=== PATIENT | female | born 1965 | race Caucasian/White ===

== ENCOUNTER 2016-04-14 00:26 | Inpatient (IN) | payer OTHER ==
[~2016-04-14] VITALS: Ht 160 cm; Wt 51.9 kg
[2016-04-14] MEDS ORDERED: LORAZEPAM 1 MG TAB SL STA (00:55)
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
[2016-04-14 01:23] LABS: BASO % 0.7 %; BASO ABS # 0.04 K/uL (0-0.2); COMPLETE YES; EOS % 1.8 %; HEMATOCRIT 41.9 % (37-47); IG% 0.2 %; LYMPH % 28.5 %; LYMPH ABS # 1.75 K/uL (1.2-3.4); MEAN CELL VOLUME 102.2 fL (80-100); MEAN CORPUSCULAR HEMOGLOBIN 35.9 pg (25-34); MEAN CORPUSCULAR HGB CONC 35.1 g/dl (32-36); MEAN PLATELET VOLUME 9.4 fL (7.4-10.4); MONO % 9.5 %; NEUT % 59.3 %; PLATELET COUNT 280 K/uL (130-400); WHITE BLOOD COUNT 6.13 K/uL (4.8-10.8)
[2016-04-14 01:41] LABS: MANUAL MICROSCOPIC REQUIRED? YES; URINE APPEARANCE CLEAR (CLEAR); URINE BILIRUBIN NEG (NEG); URINE COLOR YELLOW; URINE NITRITE NEG (NEG); URINE PH 5.5 (4.5-7.5); URINE SPECIFIC GRAVITY >= 1.030 (1.000-1.030); UROBILINOGEN NEG (NEG)
[2016-04-14 01:42] LABS: REVIEW REQ? NO
[2016-04-14 01:42] LABS: BUN/CREATININE RATIO 15.7 (10-20); CALCIUM 9.2 mg/dl (8.5-10.1); CREATININE 0.68 mg/dl (0.60-1.20); POTASSIUM 4.1 mmol/L (3.5-5.1)
[2016-04-14 01:47] LABS: ACETAMINOPHEN < 2 ug/ml (10-30)
[2016-04-14 01:49] LABS: URINE BACTERIA 1+ (NEG); URINE WBC 0 /hpf (0-5)
[2016-04-14 01:50] LABS: ZZUR CULT IF INDIC CLEAN CATCH YES
[2016-04-14 01:53] LABS: BENZODIAZEPINE, URINE NEG (NEG); COCAINE,URINE NEG (NEG); PHENCYCLIDINE, URINE NEG (NEG)
[2016-04-14 01:53] LABS: ALB/GLOB RATIO 1.1 (0.9-2); THYROID STIMULATING HORMONE 1.03 uIu/ml (0.300-4.500)
[2016-04-14] MEDS ORDERED: SODIUM CHLORIDE 0.65% NA SOLN 45 ML (OCEAN) PRN (10:15)
[2016-04-14] MEDS ORDERED: ALUMINUM/MAGNESIUM SUSP 30 ML UDC PO PRN (10:15)
[2016-04-14] MEDS ORDERED: BISMUTH SUBSALICYLATE PER ML OMNICELL CHARGE PO PRN (10:15)
[2016-04-14] MEDS ORDERED: MAGNESIUM HYDROXIDE SUSP 30 ML UDC PO PRN (10:15)
--- NOTE | 2016-04-14 10:24 | EMERGENCY ROOM VISIT NOTE ---
ED Visit Note Patient received from Dr. Duque at shift change medically cleared pending psychiatric screening. At 10:25 AM case management for the patient has been accepted to 3 S.
[2016-04-14 10:32] VITALS: O2SAT 98
[2016-04-14 11:15] VITALS: BP 139/93; PULSE 94; TEMP 37.1; Ht 160 cm; Wt 51.9 kg
[2016-04-14] MEDS: NICOTINE 14 MG/24 HR TDSY TD SCH (11:23)
[2016-04-14] MEDS ORDERED: LORAZEPAM 1 MG TAB PO PRN (12:00)
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
[2016-04-14] MEDS ORDERED: ESCITALOPRAM OXALATE 10 MG TAB PO ONE (12:30)
[2016-04-14] MEDS ORDERED: INFLUENZA VIRUS QUAD VACCINE 0.5 ML SYR IM. ONE (14:00)
[2016-04-14] MEDS ORDERED: INFLUENZA ADMINISTRATION CHARGE ONE (14:00)
[2016-04-14 17:00] VITALS: BP 132/88; PULSE 90; TEMP 36.9
[2016-04-14] MEDS: NICOTINE POLACRILEX 2 MG GUM MT PRN ×2 (17:48→21:49)
[2016-04-14] MEDS: IBUPROFEN 600 MG TAB PO PRN (19:31)
[2016-04-14 20:51] VITALS: BP 156/99; PULSE 86
[2016-04-14] MEDS: hydrOXYzine HCL 25 MG TAB PO PRN (23:01)
[2016-04-15 07:05] VITALS: BP_SYST 126; BP_SYST 130; BP_DIAS 87; BP_DIAS 89; PULSE 76; PULSE 81; TEMP 37
[2016-04-15 08:17] VITALS: BP 148/90; PULSE 84; TEMP 37
[2016-04-15] MEDS: NICOTINE 14 MG/24 HR TDSY TD SCH (08:17)
[2016-04-15] MEDS ORDERED: ESCITALOPRAM OXALATE 10 MG TAB PO SCH (09:00)
[2016-04-15] MEDS: IBUPROFEN 600 MG TAB PO PRN (09:38)
[2016-04-15 12:07] VITALS: BP 144/93; PULSE 76; TEMP 36.9
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
[2016-04-15] MEDS: hydrOXYzine HCL 25 MG TAB PO PRN ×2 (14:11→21:30)
[2016-04-15 14:46] VITALS: BP 144/92; PULSE 85; TEMP 36.8
[2016-04-15] MEDS ORDERED: LORAZEPAM 1 MG TAB PO PRN (16:15)
[2016-04-15 17:49] VITALS: BP 145/96; PULSE 87; TEMP 36.4
[2016-04-15 20:31] VITALS: BP 131/87; PULSE 94; TEMP 36.9
[2016-04-16 07:07] VITALS: BP_SYST 120; BP_SYST 128; BP_DIAS 86; BP_DIAS 89; PULSE 82; PULSE 92; TEMP 37
[2016-04-16 08:07] VITALS: BP 132/92; PULSE 84; TEMP 37.1
[2016-04-16] MEDS: NICOTINE 14 MG/24 HR TDSY TD SCH (08:58)
[2016-04-16] MEDS: ESCITALOPRAM OXALATE 10 MG TAB PO SCH (10:13)
[2016-04-16] MEDS ORDERED: ACETAMINOPHEN 500 MG TAB PO PRN (12:00)
[2016-04-16 12:23] VITALS: BP 125/86; PULSE 81; TEMP 37.2
[2016-04-16] MEDS: hydrOXYzine HCL 25 MG TAB PO PRN ×3 (12:27→21:29)
[2016-04-16] MEDS: ASPIRIN/ALUM/MAGNES/CAL CARB 325 MG TAB PO PRN (12:41)
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
[2016-04-17 07:02] VITALS: BP_SYST 120; BP_SYST 129; BP_DIAS 83; BP_DIAS 88; PULSE 73; PULSE 85; TEMP 36.6
[2016-04-17] MEDS: ASPIRIN/ALUM/MAGNES/CAL CARB 325 MG TAB PO PRN (07:37)
[2016-04-17] MEDS: ESCITALOPRAM OXALATE 10 MG TAB PO SCH (09:06)
[2016-04-17] MEDS: NICOTINE 14 MG/24 HR TDSY TD SCH (09:07)
[2016-04-17] MEDS ORDERED: ATR25 PO (09:39)
[2016-04-17] MEDS ORDERED: LXP10 PO (09:39)
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
[2016-05-30] MEDS ORDERED: ESCI1TAB10 PO (12:41)
[2016-05-30] MEDS ORDERED: VISTARIL PO (12:41)
[2016-05-30] MEDS ORDERED: HYDR1CAP85 PO (12:41)
[2016-05-30] MEDS ORDERED: TRAM-10 PO (12:41)
== END 2016-04-17 12:15 | disposition home or self-care (01) | DRG 885 ==
LOC: C.EDB 00:28 → C.MHU 10:05
PROVIDERS: ADMIT Psychiatry & Neurology Child & Adolescent Psychiatry; ATTEND Psychiatry & Neurology Child & Adolescent Psychiatry
DX: F33.2 Major depressive disorder, recurrent severe without psychotic features (principal); F17.210 Nicotine dependence, cigarettes, uncomplicated; F41.0 Panic disorder [episodic paroxysmal anxiety]; F10.120 Alcohol abuse with intoxication, uncomplicated; Z23 Encounter for immunization; Z91.5 Personal history of self-harm

== ENCOUNTER 2016-04-19 20:25 | Emergency (ER) | payer OTHER ==
[~2016-04-19] VITALS: Ht 160 cm; Wt 53.8 kg
[~2016-04-19 20:25] MED LIST: ATR25 PO; LXP10 PO
[2016-04-19 20:31] VITALS: Ht 160 cm; Wt 53.8 kg
[2016-04-19 21:30] LABS: PREG INTERNAL NEGATIVE QC NEG CLEAR BACKGROUND; PREG INTERNAL POSITIVE QC POS CONTROL LINE
[2016-04-19 21:51] LABS: HEMATOCRIT 42.9 % (37-47); MEAN CELL VOLUME 103.6 fL (80-100); MEAN CORPUSCULAR HGB CONC 35.7 g/dl (32-36); MEAN PLATELET VOLUME 9.7 fL (7.4-10.4); PLATELET COUNT 285 K/uL (130-400); RED BLOOD COUNT 4.14 M/uL (4.2-5.4)
[2016-04-19 22:00] LABS: BENZODIAZEPINE, URINE NEG (NEG); COCAINE,URINE NEG (NEG); PHENCYCLIDINE, URINE NEG (NEG)
[2016-04-19 22:08] LABS: ALT/SGPT 24 U/L (12-78); AST/SGOT 15 U/L (15-37); BLOOD UREA NITROGEN 8 mg/dl (7-18); BUN/CREATININE RATIO 12.8 (10-20); CALCIUM 9.3 mg/dl (8.5-10.1); CARBON DIOXIDE 20 mmol/L (21-32); CHLORIDE 109 mmol/L (98-107); CREATININE 0.61 mg/dl (0.60-1.20); GLUCOSE 95 mg/dl (70-99); POTASSIUM 4.1 mmol/L (3.5-5.1); SODIUM 143 mmol/L (136-145)
[2016-04-19 22:15] LABS: ACETAMINOPHEN < 2 ug/ml (10-30)
[2016-04-19 22:18] LABS: ALKALINE PHOSPHATASE 57 U/L (45-117)
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
--- NOTE | 2016-04-20 08:08 | EMERGENCY ROOM VISIT NOTE ---
ED Visit Note First contact with patient: 05:13 I received this patient in signout at the change of shift from Dr. Tom Agrawal, pending mental health evaluation. The patient initially agreed to a voluntary admission however refused admission to any of the local facilities. She stated that she preferred to be discharged to stay with her cousin. The patient has recently signed out of a voluntary hospitalization, she has been drinking alcohol heavily and sliced her wrists with a razor. She does live at home alone. This time I do not feel the patient is safe in her own care. She states she will not go voluntarily. A 302 petitioning statement has been signed. A bed search is currently underway. The case has been signed out to Dr. Carrion at the change of shift.
[2016-04-20] MEDS ORDERED: ACETAMINOPHEN 500 MG TAB PO STA ×2 (09:58→14:44)
--- NOTE | 2016-04-20 10:09 | EMERGENCY ROOM VISIT NOTE ---
ED Visit Note First contact with patient: 10:08 51-year-old female signed off to me at change of shift from Dr. Orozco. I reexamined the patient at 1004. The patient is upset that she has been 302'd. She states that she is not suicidal. This is the second visit for this patient recently. We are awaiting bed placement. The patient was given Tylenol for a headache.
[2016-04-20] MEDS ORDERED: ESCITALOPRAM OXALATE 10 MG TAB PO ONE (13:45)
[2016-04-20 15:25] VITALS: BP 137/88; PULSE 101; TEMP 37; O2SAT 99
[2016-05-30] MEDS ORDERED: HYDR1CAP85 PO (12:41)
[2016-05-30] MEDS ORDERED: ESCI1TAB10 PO (12:41)
[2016-05-30] MEDS ORDERED: VISTARIL PO (12:41)
[2016-05-30] MEDS ORDERED: TRAM-10 PO (12:41)
== END 2016-04-20 15:25 ==
LOC: C.EDB 20:25 → CANBEDREQ 22:07 → C.EDA 04-20 15:25
DX: F39 Unspecified mood [affective] disorder (principal); S61.512A Laceration without foreign body of left wrist, initial encounter; F10.129 Alcohol abuse with intoxication, unspecified; Z79.899 Other long term (current) drug therapy; Z88.5 Allergy status to narcotic agent; Z88.8 Allergy status to other drugs, medicaments and biological substances; X78.8XXA Intentional self-harm by other sharp object, initial encounter; F17.200 Nicotine dependence, unspecified, uncomplicated; Z82.49 Family history of ischemic heart disease and other diseases of the circulatory system

== ENCOUNTER → 2016-05-28 | Outpatient (CLI) | payer OTHER ==
[~2016-05-28] MED LIST changes: +ESCI1TAB10 PO; +HYDR1CAP85 PO; +TRAM-10 PO; +VISTARIL PO
== END | disposition home or self-care (01) ==
LOC: C.RDSM 12:58
PROVIDERS: ATTEND Orthopaedic Surgery Sports Medicine
DX: M25.571 Pain in right ankle and joints of right foot (principal)

== ENCOUNTER → 2016-06-03 | Day surgery (SDC) | payer OTHER ==
[2016-05-30 12:41] VITALS: Ht 160 cm; Wt 52.3 kg
[~2016-06-03] VITALS: Ht 160 cm; Wt 52.3 kg
[~2016-06-03] MED LIST changes: -ATR25 PO; +ATROPINE SULFATE 0.1 MG/ML 5ML SYR IV PRN; +BUPIVACAINE 0.5 % 5 MG/1 ML MPF 30ML VIAL ONE; +CEFAZOLIN 1000MG/55 ML D5W IV SCH; +DEXAMETHASONE SOD INJ 4 MG/ML VIAL IV PRN; +DEXAMETHASONE SOD INJ 4 MG/ML VIAL ONE; +EpHEDrine SULFATE INJ 50 MG/ML AMP IV PRN; +FENTANYL CITRATE INJ 50 MCG/1 ML 2 ML VIAL IV PRN; +FENTANYL CITRATE INJ 50 MCG/1 ML 2 ML VIAL ONE; +KETOROLAC TROMETHAMINE 30 MG/ML VIAL IV. PRN; +KETOROLAC TROMETHAMINE 30 MG/ML VIAL ONE; +LABETALOL HCL IV 5 MG/ML 20ML IV PRN; +LACTATED RINGER'S 1000ML 1,000 ML IV SCH; +LIDOCAINE HCL 1% MPF 2 ML VIAL ONE; +LIDOCAINE HCL 2% 2 ML VIAL (20MG/ML) ONE; +LIDOCAINE/EPINEPHRINE 1% INJ 50 ML VIAL ONE; -LXP10 PO; +METOCLOPRAMIDE HCL INJ 5 MG/ML 2 ML VIAL IV PRN; +MIDAZOLAM HCL 1 MG/ML 2ML VIAL ONE; +MoRPHine SULFATE 10 MG/ML CARP/VIAL IV PRN; +MoRPHine SULFATE 2 MG/ML CARP IV PRN; +MoRPHine SULFATE 4 MG/ML 1 ML CARP\\VIAL IV PRN; +ONDANSETRON INJ 2 MG/ML 2 ML VIAL IV PRN; +ONDANSETRON INJ 2 MG/ML 2 ML VIAL ONE; +PHENYLEPHRINE 100MCG/ML 5ML SYR IV PRN; +PROPOFOL IV EMULSION 10 MG/ML 20 ML VIAL IV ONE; +ROPIVACAINE 0.5% 5 MG/ML 30 ML VIAL ONE; +TRAMADOL HCL 50 MG TAB PO PRN
--- NOTE | 2016-06-03 06:54 | History & Physical Bridge - SC ---
H&P Re-Evaluation Bridge Note: I have examined the patient, reviewed the History & Physical and in the interval since the performance of the History & Physical I have noted the following changes of clinical significance: No changes noted
--- NOTE | 2016-06-03 09:38 | Discharge Instructions-[facility]urgCtr ---
Discharge Instructions Date of Service Jun 03, 2016. Visit Reason for Visit: Right Ankle Painful Retained Hardware Discharge Discharge Diagnosis / Problem: Status post removal hardware right ankle Discharge Goals Goal(s): Decrease discomfort, Improve function, Increase independence Activity Recommendations Activity Limitations: per Instructions/Follow-up section May Resume Sexual Activity: when tolerated Driving or Machine Use: Not while on Narcotics or in splint/boot Weightbearing Status: Right toe touch Anesthesia . Post Anesthesia Instructions: If you have had General Anesthesia or IV Sedation: * Do not drive today. * Resume driving when surgeon permits. * Do not make important decisions or sign legal documents today. * Call surgeon for: 1. Temperature elevations greater than 101 degrees F. 2. Uncontrollable pain. 3. Excessive bleeding. 4. Persistent nausea and vomiting. 5. Medication intolerance (nausea, vomiting or rash). * For nausea and vomiting use only clear liquids such as: tea, soda, bouillon until nausea subsides, then gradually increase diet as tolerated. * If you have any concerns or questions, call your surgeon's office. If physician is unavailable and it is an emergency, call 911 or go to the nearest emergency room. . Instructions / Follow-Up Instructions / Follow-Up Dr. Reis in 10-15 days. PT in 2-3 days. Diet Recommendations Home Diet: resume previous diet Procedures Procedures Performed: Right Ankle Hardware Removal Pending Studies Studies pending at discharge: no Medical Emergencies . Who to Call and When: Medical Emergencies: If at any time you feel your situation is an emergency, please call 911 immediately. . Non-Emergent Contact Non-Emergency issues call your: Surgeon Call Non-Emergent contact if: temperature is above 101.5, your pain is not controlled, wound has increased drainage, wound has increased redness . . "Provider Documentation" section prepared by Shaggy Reis.
--- NOTE | 2016-06-03 09:40 | [facility] Operative Report ---
Operative Report Operative Date Jun 03, 2016. Pre-Operative Diagnosis Painful hardware right ankle Post-Operative Diagnosis Same as preop Procedure(s) Performed Right Ankle Hardware Removal Surgeon Dr. Reis Flare Man Surgeon(s) Lauri Hassan MD and Franklin Ramirez PA-C Estimated Blood Loss 6 Findings Prominent Retained orthopaedic hardware right ankle. Fluids (cc crystalloids) 800 Specimens None Drains n/a Anesthesia LMA Complication(s) None Disposition Recovery Room / PACU (Stable) Implants n/a Indications The patient is a 51 female with a history of previous right distal tib-fib open reduction internal fixation, with painful retained hardware, that is palpable. The patient understands the risks of surgery, which include but are not limited to: bleeding, infection, re-operation, damage to nerves and arteries, continued pain, being unable to remove all of the hardware, and DVT. The patient understands all of these instructions and explanations, all of their questions have been satisfactorily addressed. The patient has elected to proceed with surgery and the informed consent was signed. Description of Procedure The patient was taken to the Operating Room and placed in the supine position on the operating table. After general anesthetic was administered a multidisciplinary time-out was performed identifying my initials on the right limb as the correct and operative limb. Prior to any incisions, 1 gram of intravenous Ancef were given. The right leg was prepped and draped in the usual Orthopaedic sterile fashion. The patient's previous incisions lateral about the ankle and medial about the medial malleolus and her 3 small stab incisions proximally along the medial aspect of the tibia were marked. The skin edges were injected with a 50:50 mixture of 1% lidocaine and 0.5 % Marcaine with epi for a total of 10 cc. the medial side was performed first in the distal portion of the incision was utilized and carried down to the plate. The screws were cleared of any soft tissue and removed with the appropriate screwdriver. The 3 previous stab incisions were utilized and careful dissection protecting the saphenous vein and nerve throughout. The plate was identified and soft tissue cleared to identify the screws which were removed sequentially. Then using [place] elevator along with a locking guide in the distal aspect of the plate the plate was freed from the bone and delivered out the distal wound. Any scar tissue was removed with rongeur and the screw hole were cleared and smoothed out also with the rongeur. The wound was copiously irrigated. The lateral side was performed next, again using the previous incision carrying it down to the plate and screws. Freeing up any soft tissue to allow removal of all the screws and the plate. The lag screw over the anterior portion of the fibula was identified and freed of any soft tissue and was also removed prior to removing the plate. Scar tissue and roughened areas where the screw holes were located were cleaned with rongeur and curettes. The wound was copiously irrigated. Final x-rays were obtained AP and lateral showing the hardware removed and her previous fractures healed. The skin incisions were closed with 3-0 Prolene in horizontal mattress fashion. The limb was cleaned and dried. The wound was covered Xerofoam, 4 x 4's, ABDs , sterile cast padding, posterior splint, and an RONAN. The sponge and needle counts were correct. POST-OP: Patient will be toe-touch weightbearing, until she can be switched to a high tide cam boot. At that point she will be allowed to be 25% partial weightbearing. She was given pain medicine. She will follow-up with Dr. Reis in 10-15 days. I attest to the content of the Intraoperative Record and any orders documented therein. Any exceptions are noted below.
--- NOTE | 2016-06-03 09:48 | [facility] Operative Report ---
Operative Report Operative Date Jun 03, 2016. Pre-Operative Diagnosis Painful hardware right ankle Post-Operative Diagnosis Same as preop Procedure(s) Performed Right Ankle Hardware Removal Surgeon Dr. Reis Counter Supervisor Surgeon(s) Lauri Hassan MD and Franklin Ramirez PA-C Estimated Blood Loss 6 Findings same Fluids (cc crystalloids) 800 Specimens None Drains none Anesthesia general Complication(s) None Disposition Recovery Room / PACU Implants none Indications painful hardware s/p ORIF right lower extremity, surgery recommended, consents signed Description of Procedure taken to the OR, prepped and draped, I was present the entire case, please see Dr. Reis's op note for further detail. I attest to the content of the Intraoperative Record and any orders documented therein. Any exceptions are noted below.
[2016-06-03 10:35] VITALS: TEMP 37.7
[2016-06-03 10:48] VITALS: BP 165/94; PULSE 64; O2SAT 96
--- NOTE | 2016-06-03 10:51 | Anesthesia Progress Nt - [facility] ---
Anesthesia Post Op Note Date & Time Jun 03, 2016 at 10:51 Vital Signs Pain Intensity: 0 Vital Signs Past 12 Hours Date Time Temp Pulse Resp B/P Pulse Ox O2 Delivery O2 Flow Rate FiO2 06/03/16 10:48 64 16 165/94 96 Room Air 06/03/16 10:35 37.7 70 16 161/95 97 Room Air 06/03/16 10:18 37.4 75 20 06/03/16 10:18 74 20 98 06/03/16 10:16 152/94 06/03/16 10:13 84 13 06/03/16 10:13 80 13 96 06/03/16 10:10 146/97 06/03/16 10:08 83 12 97 06/03/16 10:08 83 12 06/03/16 10:06 157/99 06/03/16 10:03 96 16 96 06/03/16 10:03 98 16 06/03/16 10:00 166/99 06/03/16 09:58 97 16 06/03/16 09:58 94 16 99 06/03/16 09:55 158/99 06/03/16 09:53 105 12 06/03/16 09:53 105 12 100 06/03/16 09:50 158/105 06/03/16 09:49 36.2 102 16 165/109 98 Nasal Cannula 4 06/03/16 09:48 104 19 165/109 98 06/03/16 09:48 100 19 06/03/16 06:24 37 76 18 161/97 96 Room Air Notes Mental Status: alert / awake / arousable, participated in evaluation Pt Amnestic to Procedure: Yes Nausea / Vomiting: adequately controlled Pain: adequately controlled Airway Patency, RR, SpO2: stable & adequate BP & HR: stable & adequate Hydration State: stable & adequate Anesthetic Complications: no major complications apparent
== END | disposition home or self-care (01) ==
LOC: X.SURG 06:07
PROVIDERS: ATTEND Orthopaedic Surgery Sports Medicine
DX: T84.84XA Pain due to internal orthopedic prosthetic devices, implants and grafts, initial encounter (principal); Y83.1 Surgical operation with implant of artificial internal device as the cause of abnormal reaction of the patient, or of later complication, without mention of misadventure at the time of the procedure; F41.9 Anxiety disorder, unspecified; F32.9 Major depressive disorder, single episode, unspecified; F17.210 Nicotine dependence, cigarettes, uncomplicated; Z88.5 Allergy status to narcotic agent; Z82.49 Family history of ischemic heart disease and other diseases of the circulatory system; Z80.8 Family history of malignant neoplasm of other organs or systems; Z90.710 Acquired absence of both cervix and uterus

== ENCOUNTER → 2016-07-23 | Outpatient (CLI) | payer OTHER ==
[~2016-07-23] MED LIST changes: -ATROPINE SULFATE 0.1 MG/ML 5ML SYR IV PRN; -BUPIVACAINE 0.5 % 5 MG/1 ML MPF 30ML VIAL ONE; -CEFAZOLIN 1000MG/55 ML D5W IV SCH; -DEXAMETHASONE SOD INJ 4 MG/ML VIAL IV PRN; -DEXAMETHASONE SOD INJ 4 MG/ML VIAL ONE; -EpHEDrine SULFATE INJ 50 MG/ML AMP IV PRN; -FENTANYL CITRATE INJ 50 MCG/1 ML 2 ML VIAL IV PRN; -FENTANYL CITRATE INJ 50 MCG/1 ML 2 ML VIAL ONE; -KETOROLAC TROMETHAMINE 30 MG/ML VIAL IV. PRN; -KETOROLAC TROMETHAMINE 30 MG/ML VIAL ONE; -LABETALOL HCL IV 5 MG/ML 20ML IV PRN; -LACTATED RINGER'S 1000ML 1,000 ML IV SCH; -LIDOCAINE HCL 1% MPF 2 ML VIAL ONE; -LIDOCAINE HCL 2% 2 ML VIAL (20MG/ML) ONE; -LIDOCAINE/EPINEPHRINE 1% INJ 50 ML VIAL ONE; -METOCLOPRAMIDE HCL INJ 5 MG/ML 2 ML VIAL IV PRN; -MIDAZOLAM HCL 1 MG/ML 2ML VIAL ONE; -MoRPHine SULFATE 10 MG/ML CARP/VIAL IV PRN; -MoRPHine SULFATE 2 MG/ML CARP IV PRN; -MoRPHine SULFATE 4 MG/ML 1 ML CARP\\VIAL IV PRN; -ONDANSETRON INJ 2 MG/ML 2 ML VIAL IV PRN; -ONDANSETRON INJ 2 MG/ML 2 ML VIAL ONE; -PHENYLEPHRINE 100MCG/ML 5ML SYR IV PRN; -PROPOFOL IV EMULSION 10 MG/ML 20 ML VIAL IV ONE; -ROPIVACAINE 0.5% 5 MG/ML 30 ML VIAL ONE; -TRAMADOL HCL 50 MG TAB PO PRN
== END | disposition home or self-care (01) ==
LOC: C.RDSM 13:52
PROVIDERS: ATTEND Orthopaedic Surgery Sports Medicine
DX: Z09 Encounter for follow-up examination after completed treatment for conditions other than malignant neoplasm (principal); M25.571 Pain in right ankle and joints of right foot